=== PATIENT | male | born 1940 | race Caucasian/White ===

== ENCOUNTER 2023-11-09 07:51 | Day surgery (SDC) | payer MEDICARE, OTHER ==
[~2023-11-09 07:51] MED LIST: Midazolam 1 MG/ML 2 ML SDV ONE; Propofol 200 MG/20 ML SDV ONE
[2023-11-09] MEDS ORDERED: Sodium Chloride 0.9% 10 ML Syringe FLUSH PRN (08:15)
[2023-11-09] MEDS: Lactated Ringers 1,000 ML IV SCH (08:30)
[2023-11-09] MEDS ORDERED: Propofol 200 MG/20 ML SDV IVPUSH ONE (09:20)
== END 2023-11-09 10:57 | disposition home or self-care (01) ==
LOC: LL.SDS 07:51
PROVIDERS: ATTEND Surgery
DX: Z12.11 Encounter for screening for malignant neoplasm of colon (principal); D12.0 Benign neoplasm of cecum; D12.2 Benign neoplasm of ascending colon; D12.3 Benign neoplasm of transverse colon; K57.30 Diverticulosis of large intestine without perforation or abscess without bleeding; E11.22 Type 2 diabetes mellitus with diabetic chronic kidney disease; N18.31 Chronic kidney disease, stage 3a; H61.23 Impacted cerumen, bilateral; R80.9 Proteinuria, unspecified; E78.5 Hyperlipidemia, unspecified; Z79.84 Long term (current) use of oral hypoglycemic drugs; Z79.899 Other long term (current) drug therapy; Z86.010 Personal history of colon polyps
CPT/HCPCS: 00811; 88305; 99100; J2250; J2704; J7120